=== PATIENT | female | born 1960 | race African-American/Black ===

== ENCOUNTER 2021-07-22 10:40 | Emergency (ER) | payer MEDICARE ==
[~2021-07-22] VITALS: Ht 160 cm; Wt 76.0 kg
[~2021-07-22 10:40] MED LIST: FERROUS SULF325 MG
[2021-07-22] MEDS ORDERED: GABAPENTIN100 MG PO (11:08)
[2021-07-22] MEDS ORDERED: METFORMIN HCL750 MG PO (11:08)
[2021-07-22] MEDS ORDERED: LOSARTAN POTASS25 MG PO (11:09)
[2021-07-22] MEDS ORDERED: TRAZODONE50 MG PO (11:09)
[2021-07-22] MEDS ORDERED: ATORVASTATIN CA20 MG PO (11:09)
[2021-07-22] MEDS ORDERED: AMOX/K CLAV875 M1 PO (11:28)
[2021-07-22 11:36] VITALS: BP 134/77
== END 2021-07-22 11:50 | disposition home or self-care (01) ==
LOC: ED 10:40
DX: R59.0 Localized enlarged lymph nodes (principal); I10 Essential (primary) hypertension; E11.9 Type 2 diabetes mellitus without complications; F17.210 Nicotine dependence, cigarettes, uncomplicated; Z79.84 Long term (current) use of oral hypoglycemic drugs

== ENCOUNTER 2021-08-09 14:05 | Observation (INO) | payer MEDICARE ==
[~2021-08-09] VITALS: Ht 160 cm; Wt 72.0 kg
[~2021-08-09 14:05] MED LIST changes: +AMOX/K CLAV875 M1 PO; +ATORVASTATIN CA20 MG PO; +GABAPENTIN100 MG PO; +LOSARTAN POTASS25 MG PO; +METFORMIN HCL750 MG PO; +TRAZODONE50 MG PO
--- NOTE | 2021-08-09 14:05 | NUR ---
PT TO ROOM 15 VIA WC ABLE TO STAND AND TRANSFER SELF.
[2021-08-09 15:32] LABS: HEMATOCRIT 33.8 % (37.0-47.0); HEMOGLOBIN 11.1 g/dl (12.0-16.0); IMMATURE GRANULOCYTES 0.2 % (0.0-5.0); MEAN CELL VOLUME 92.9 fL CALC (80.0-100.0); MEAN CORPUSCULAR HGB 30.5 pG CALC (26.0-32.0); MEAN CORPUSCULAR HGB CONC 32.8 g/dL CAL (32.0-36.0); NEUT# 3.14 thou/uL (2.00-7.15); RED BLOOD COUNT 3.64 mill/uL (4.20-5.60); RED CELL DISTRI WIDTH 12.8 % (11.5-15.5)
[2021-08-09 15:44] LABS: ALBUMIN 4.5 g/dL (3.2-5.0); ALKALINE PHOSPHATASE 82 u/l (38-126); AMYLASE 80 u/l (30-110); ANION GAP 13 (6-22 (CALC)); BILIRUBIN, TOTAL 0.5 mg/dL (0.0-1.4); BUN 15 mg/dL (8-23); BUN/CREATININE RATIO 14 (12-20 (CALC)); CARBON DIOXIDE 25 mmol/l (22-30); CHLORIDE 108 mmol/l (95-108); CREATININE 1.1 mg/dL (0.5-1.0); GFR 50 ML/MIN (>=60 (CALC)); GFR FOR AFR.AMER. > 60 ML/MIN (>=60 (CALC)); LIPASE 57 u/l (23-300); SGOT/AST 18 u/l (9-36); SODIUM 142 mmol/l (137-146); TOTAL PROTEIN 8.2 g/dL (6.3-8.2)
[2021-08-09 16:01] LABS: ACT PARTIAL THROMBO TIME 24.6 SECONDS (20.0-32.5); PROTHROMBIN TIME 10.2 SECONDS (9.0-12.5)
--- NOTE | 2021-08-09 16:10 | NUR ---
Reassessment of patient completed. No distress noted. PATIENT'S REMAINS BEDISDE.
--- NOTE | 2021-08-09 17:25 | NUR ---
PATIENT OFFERED MEAL TRAY
--- NOTE | 2021-08-09 17:46 | NUR ---
REPORT CALLED TO VANIA RN/MED/SURG
--- NOTE | 2021-08-09 18:37 | NUR ---
PT ARRIVES TO ROOM 269 VIAS STRETCHER FROM ER ACCOMPANIED BY ALLI GONZÁLES. PT IS ALERT AND ORIENTED X 3. LUNGS CLEAR, AMBULATORY IN ROOM. NO DISTRESS NOTED, NO COMPLAINT OF CHEST PAIN.
[2021-08-09 19:00] VITALS: BP 142/64
--- NOTE | 2021-08-09 21:58 | NUR ---
PHYSICAL ASSESMENT COMPLETE. PT CURRENTLY REQUEST MEAL AND BEVERAGE. PT STATES SHE HAS NO PAIN OR DISCOMFORT AT THIS TIME. SCHEDULED MEDICATIONS AND PRN MEDICATION ADMINISTERED, SEE E-MAR. PLAN OF CARE REVIEWED, PT DENIES QUESTIONS, VERBALIZES UNDERSTANDING. ITEMS WITHIN REACH, BED LOCKED IN LOW POSITION W/ BEDRAILS UP X2. CALL LANDERS WITHIN REACH, AGREES TO CALL PRN.
[2021-08-10] VITALS: BP 128/62
--- NOTE | 2021-08-10 | NUR ---
PT LAYING IN BED WITH EYES CLOSED, APPEARS TO BE SLEEPING, APPEARS COMFORTABLE AND IN NO DISTRESS. RESPIRATIONS REGULAR AND UNLABORED. ITEMS REMAIN WITHIN REACH, CALL LANDERS REMAINS WITHIN REACH. BED REMAINS LOCKED AND IN LOW POSITION WITH BEDRAILS UP X2. WILL CONTINUE TO MONITOR.
[2021-08-10 04:00] VITALS: BP 123/66
--- NOTE | 2021-08-10 04:00 | NUR ---
PT RESTING IN BED, NO SIGNS OF DISTRESS NOTED, RESP EVEN AND UNLABORED. PT VOICES NO NEEDS OR COMPLAINTS AT THIS TIME. CALL LIGHT IN REACH, CONTINUE TO MONITOR.
[2021-08-10 06:33] LABS: HEMATOCRIT 32.4 % (37.0-47.0); HEMOGLOBIN 10.1 g/dl (12.0-16.0); MEAN CELL VOLUME 96.1 fL CALC (80.0-100.0); MEAN CORPUSCULAR HGB CONC 31.2 g/dL CAL (32.0-36.0); RED BLOOD COUNT 3.37 mill/uL (4.20-5.60)
[2021-08-10 06:55] LABS: ANION GAP 13 (6-22 (CALC)); BUN 22 mg/dL (8-23); BUN/CREATININE RATIO 21 (12-20 (CALC)); CALCULATED LDLCHOLESTEROL 58 mg/dL (62-129 (CALC)); CARBON DIOXIDE 25 mmol/l (22-30); CHLORIDE 108 mmol/l (95-108); CHOLESTEROL HDL RATIO 2.6 (<4.4 (CALC)); CREATININE 1.1 mg/dL (0.5-1.0); GFR 50 ML/MIN (>=60 (CALC)); GFR FOR AFR.AMER. > 60 ML/MIN (>=60 (CALC)); HDL CHOLESTEROL 49 mg/dL (>=40); MAGNESIUM 2.1 mg/dL (1.6-2.3); POTASSIUM 4.5 mmol/l (3.5-5.1); SODIUM 142 mmol/l (137-146); TOTAL CHOLESTEROL 129 mg/dl (0-199); TOTAL TRIGLYCERIDES 112 mg/dl (30-149); VLDL CHOLESTROL 22 mg/dl (1-41 (CALC))
--- NOTE | 2021-08-10 07:05 | NUR ---
REPORT RECEIVED FROM NIVIA FORRESTER
--- NOTE | 2021-08-10 08:00 | NUR ---
PT RESTING IN SEMI FOWLERS,A&O X3;VS OBTAINED AND ASSESSMENT COMPLETED;PT DENIES ANY CURRENT PAIN OR DISCOMFORTS,PAIN SCALE AND REPORTING EDUCATED;RESPIRATIONS EVEN AND UNLABORED ON RA,CLEAR LUNG SOUNDS;ABDOMEN SOFT ON PALPATION AND ACTIVE IN ALL 4 QUADRANTS;STRONG PEDAL PULSES;SKIN INTACT;TELE MONITORING IN PLACE;#18G TO LAC FLUSHED AND PATENT,SITE APPEARS HEALTHY;ACCUCHECK 124, NO COVERAGE NEEDED;PT DENIES ANY ADDITIONAL NEEDS AND IS ENCOURAGED TO CALL FOR ASSISTANCE IF NEEDED;FALL PRECAUTIONS IN PLACE WITH BED IN THE LOWEST POSITION AND CALL LIGHT IN REACH;WILL CONTINUE TO MONITOR
[2021-08-10 08:02] VITALS: BP 131/61
--- NOTE | 2021-08-10 10:01 | NUR ---
AND JOSE BRIGHTRP AT BEDSIDE DISCUSSING POC.
[2021-08-10] MEDS ORDERED: ADLT ASA LOW81 MG PO (10:09)
[2021-08-10] MEDS ORDERED: NITROSTAT0.4 MG SL (10:09)
--- NOTE | 2021-08-10 11:00 | NUR ---
PT RESTING IN SEMI FOWLERS POSITION;RESPIRATIONS EVEN AND UNLABORED ON RA;PT DENIES ANY CURRENT PAIN OR NEEDS;TELE MONITORING IN PLACE;IV SITE PATENT;PT EDUCATED ON PLANS TO D/C HOME AND VERBALIZES UNDERSTANDING;PT DENIES ANY ADDITIONAL NEEDS AND IS ENCOURAGED TO CALL FOR ASSISTANCE IF NEEDED;FALL PRECAUTIONS REMAIN IN PLACE WITH CALL LIGHT IN REACH;WILL CONTINUE TO MONITOR
[2021-08-10 11:14] VITALS: BP 128/68
--- NOTE | 2021-08-10 12:12 | NUR ---
ALL DISCHARGE INSTRUCTIONS PROVIDED AT THIS TIME;PT INSTRUCTED TO F/U WITH PCP AND [facility]. AVOID RECREATIONAL DRUG USE. TAKE ASPIRIN DIRECTED. NITRO NEEDED FOR CHEST PAIN. ALL RX SENT TO PHARMACY;PT DENIES ANY ADDITIONAL QUESTIONS OR NEEDS;LETTER FOR WORK PROVIDED FOR PT TO RETURN 08/11/21.IV SITE REMOVED WITH CATHETER INTACT AND TELE MONITORING D/C;WC TO BE PROVIDED FOR D/C HOME;[facility] TO TRANSPORT PT HOME.WILL CONTINUE TO MONITOR
--- NOTE | 2021-08-10 12:39 | NUR ---
Discharge instructions given. Patient verbalizes understanding of same. Discharged in stable condition via Wheelchair to Home with family. All belongings sent with pt. PT TRANSPORTED TO [facility] FOR D/C HOME IN STABLE CONDITION VIA ACCOMPANIED BY FOSTER BRANTLEY. ALL BELONGINGS LEFT WITH PT.[facility] TO TRANSPORT PT HOME.
== END 2021-08-10 12:39 | disposition home or self-care (01) ==
LOC: ED 14:05 → ED-I 16:42 → MS2 16:54 → ED 16:54 → MS2 08-10 12:39
PROVIDERS: ADMIT Hospitalist; ATTEND Hospitalist
DX: R07.9 Chest pain, unspecified (principal); F14.10 Cocaine abuse, uncomplicated; N17.9 Acute kidney failure, unspecified; I10 Essential (primary) hypertension; E11.40 Type 2 diabetes mellitus with diabetic neuropathy, unspecified; F17.210 Nicotine dependence, cigarettes, uncomplicated; Z79.84 Long term (current) use of oral hypoglycemic drugs; Z20.822 Contact with and (suspected) exposure to COVID-19
CPT/HCPCS: J1650

== ENCOUNTER 2021-11-27 16:04 | Emergency (ER) | payer MEDICARE ==
[~2021-11-27] VITALS: Ht 160 cm; Wt 79.5 kg
[~2021-11-27 16:04] MED LIST changes: +ADLT ASA LOW81 MG PO; +NITROSTAT0.4 MG SL
[2021-11-27 18:29] LABS: HEMATOCRIT 30.8 % (37.0-47.0); HEMOGLOBIN 9.8 g/dl (12.0-16.0); MEAN CELL VOLUME 95.1 fL CALC (80.0-100.0); MEAN CORPUSCULAR HGB 30.2 pG CALC (26.0-32.0); MEAN CORPUSCULAR HGB CONC 31.8 g/dL CAL (32.0-36.0); NEUT# 2.21 thou/uL (2.00-7.15); RED BLOOD COUNT 3.24 mill/uL (4.20-5.60); RED CELL DISTRI WIDTH 13.5 % (11.5-15.5)
[2021-11-27 18:43] LABS: ALBUMIN 4.4 g/dL (3.2-5.0); ALKALINE PHOSPHATASE 66 u/l (38-126); ANION GAP 18 (6-22 (CALC)); BILIRUBIN, TOTAL 0.3 mg/dL (0.0-1.4); BUN 22 mg/dL (8-23); BUN/CREATININE RATIO 25 (12-20 (CALC)); CARBON DIOXIDE 20 mmol/l (22-30); CHLORIDE 106 mmol/l (95-108); CREATININE 0.9 mg/dL (0.5-1.0); GFR > 60 ML/MIN (>=60 (CALC)); GFR FOR AFR.AMER. > 60 ML/MIN (>=60 (CALC)); POTASSIUM 4.6 mmol/l (3.5-5.1); SGOT/AST 26 u/l (9-36); SODIUM 139 mmol/l (137-146); TOTAL PROTEIN 8.1 g/dL (6.3-8.2)
[2021-11-27] MEDS ORDERED: ZITHROMAX250 MG PO (20:05)
[2021-11-27] MEDS ORDERED: FEOSOL45 MG PO (20:06)
[2021-11-27 21:15] VITALS: BP 121/67
== END 2021-11-27 21:24 | disposition home or self-care (01) ==
LOC: ED 16:04
PROVIDERS: Family Medicine
DX: J18.9 Pneumonia, unspecified organism (principal); I10 Essential (primary) hypertension; E11.9 Type 2 diabetes mellitus without complications; D50.9 Iron deficiency anemia, unspecified; F17.210 Nicotine dependence, cigarettes, uncomplicated; Z79.84 Long term (current) use of oral hypoglycemic drugs; Z20.822 Contact with and (suspected) exposure to COVID-19

== ENCOUNTER 2023-04-13 09:02 | Emergency (ER) | payer MEDICARE ==
[~2023-04-13] VITALS: Ht 160 cm; Wt 83.0 kg
[2023-04-13] VITALS (8 sets, daily range): BP systolic 139–162; BP diastolic 68–88
[~2023-04-13 09:02] MED LIST changes: +FEOSOL45 MG PO; +ZITHROMAX250 MG PO
[2023-04-13] MEDS ORDERED: PROZAC10 MG PO (09:28)
[2023-04-13 09:52] LABS: BASO% 0.3 % (0-3); EOS% 1.4 % (0-8); HEMATOCRIT 34.9 % (37.0-47.0); IMMATURE GRANULOCYTES 0.2 % (0.0-5.0); MEAN CELL VOLUME 93.1 fL CALC (80.0-100.0); MEAN CORPUSCULAR HGB 29.3 pG CALC (26.0-32.0); MEAN CORPUSCULAR HGB CONC 31.5 g/dL CAL (32.0-36.0); MONO% 6.1 % (2-13); NEUT# 4.02 thou/uL (2.00-7.15); RED BLOOD COUNT 3.75 mill/uL (4.20-5.60); RED CELL DISTRI WIDTH 12.8 % (11.5-15.5)
[2023-04-13 10:04] LABS: URINE BILIRUBIN - DIPSTICK NEGATIVE (NEGATIVE); URINE BLOOD DIPSTICK TRACE-LYSED (NEGATIVE); URINE COLOR YELLOW; URINE GLUCOSE - DIPSTICK NEGATIVE (NEGATIVE); URINE KETONE NEGATIVE (NEGATIVE); URINE LEUK ESTERASE NEGATIVE (NEGATIVE); URINE PROTEIN - DIPSTICK 100 mg/dL (NEG-TRACE); URINE SPECIFIC GRAVITY 1.025; URINE UROBILINOGEN - DIPSTICK 0.2 E.U./dL (0.2)
[2023-04-13 10:05] LABS: URINE NITRITE - DIPSTICK NEGATIVE (Negative)
[2023-04-13 10:06] LABS: URINE RBC 0-2 RBC/hpf (0-5)
[2023-04-13 10:09] LABS: ALBUMIN 4.6 g/dL (3.2-5.0); ANION GAP 17 (6-22 (CALC)); BUN 15 mg/dL (8-23); BUN/CREATININE RATIO 17 (12-20 (CALC)); CARBON DIOXIDE 20 mmol/l (22-30); CHLORIDE 106 mmol/l (95-108); CREATININE 0.9 mg/dL (0.5-1.0); GFR FOR AFR.AMER. > 60 ML/MIN (>=60 (CALC)); GFR OTHER RACES > 60 ML/MIN (>=60 (CALC)); LIPASE 69 u/l (23-300); POTASSIUM 4.8 mmol/l (3.5-5.1); SGOT/AST 30 u/l (9-36); SODIUM 138 mmol/l (137-146); TOTAL PROTEIN 9.1 g/dL (6.3-8.2)
[2023-04-13 10:10] LABS: ALKALINE PHOSPHATASE 108 u/l (38-126); BILIRUBIN, TOTAL 0.5 mg/dL (0.02-1.3)
[2023-04-13] MEDS ORDERED: DULCOLAX10 MG RE (11:21)
== END 2023-04-13 11:44 | disposition home or self-care (01) ==
LOC: ED 09:02
PROVIDERS: Family Medicine
DX: K59.00 Constipation, unspecified (principal); E27.9 Disorder of adrenal gland, unspecified; I10 Essential (primary) hypertension; E11.9 Type 2 diabetes mellitus without complications; F17.200 Nicotine dependence, unspecified, uncomplicated; Z79.84 Long term (current) use of oral hypoglycemic drugs
CPT/HCPCS: Q9967

== ENCOUNTER 2023-05-09 02:26 | Emergency (ER) | payer MEDICARE ==
[~2023-05-09] VITALS: Ht 160 cm; Wt 65.0 kg
[~2023-05-09 02:26] MED LIST changes: +DULCOLAX10 MG RE; +PROZAC10 MG PO
[2023-05-09 03:05] LABS: BASO% 0.2 % (0-3); EOS% 3.4 % (0-8); HEMATOCRIT 30.2 % (37.0-47.0); HEMOGLOBIN 9.5 g/dl (12.0-16.0); IMMATURE GRANULOCYTES 0.2 % (0.0-5.0); LYMPH% 19.1 % (15-41); MEAN CORPUSCULAR HGB 29.9 pG CALC (26.0-32.0); MEAN CORPUSCULAR HGB CONC 31.5 g/dL CAL (32.0-36.0); MONO% 8.6 % (2-13); NEUT# 3.98 thou/uL (2.00-7.15); NEUT% 68.5 % (42-76); RED BLOOD COUNT 3.18 mill/uL (4.20-5.60); RED CELL DISTRI WIDTH 14.8 % (11.5-15.5)
[2023-05-09] MEDS ORDERED: BENZONATATE200 MG PO (03:59)
[2023-05-09 04:02] VITALS: BP 142/61
== END 2023-05-09 04:12 | disposition home or self-care (01) ==
LOC: ED 02:26
PROVIDERS: Family Medicine
DX: J06.9 Acute upper respiratory infection, unspecified (principal); I10 Essential (primary) hypertension; E11.9 Type 2 diabetes mellitus without complications; K21.9 Gastro-esophageal reflux disease without esophagitis; Z79.84 Long term (current) use of oral hypoglycemic drugs; F17.210 Nicotine dependence, cigarettes, uncomplicated; Z20.822 Contact with and (suspected) exposure to COVID-19

== ENCOUNTER 2023-05-30 12:45 | Emergency (ER) | payer MEDICARE ==
[~2023-05-30] VITALS: Ht 160 cm; Wt 66.0 kg
[~2023-05-30 12:45] MED LIST changes: +BENZONATATE200 MG PO
[2023-05-30 12:56] VITALS: BP 120/67
[2023-05-30 13:01] VITALS: BP 116/65
[2023-05-30 13:15] VITALS: BP 122/74
[2023-05-30] MEDS ORDERED: DICLOFENAC75 MG PO (15:15)
[2023-05-30] MEDS ORDERED: MEDDOSEPAK PO (15:15)
[2023-05-30 15:20] VITALS: BP 122/74
== END 2023-05-30 15:25 | disposition home or self-care (01) ==
LOC: ED 12:45
DX: M25.561 Pain in right knee (principal); I10 Essential (primary) hypertension; E11.9 Type 2 diabetes mellitus without complications; K21.9 Gastro-esophageal reflux disease without esophagitis; F17.200 Nicotine dependence, unspecified, uncomplicated; Z79.84 Long term (current) use of oral hypoglycemic drugs